=== PATIENT | female | born 1940 | race Caucasian/White ===

== ENCOUNTER 2016-09-21 07:38 | Inpatient (IN) | payer MEDICARE, OTHER ==
[~2016-09-21] VITALS: Ht 167.6 cm; Wt 77.1 kg
[2016-09-21] VITALS (10 sets, daily range): BP systolic 110–132; BP diastolic 36–88; PULSE 66–77; TEMP 97.6–98.3
[2016-09-21] MEDS ORDERED: CADUET 10 MG-201 TAB PO (08:09)
[2016-09-21] MEDS ORDERED: SYNTHROID0.075 MG/T PO (08:09)
[2016-09-21] MEDS ORDERED: COZAAR100 MG PO (08:09)
[2016-09-21 08:46] LABS: BASO # 0.1 (0.0-0.2); BASO % 0.6 % (0.0-2.0); EOS # 0.2 (0.0-0.7); EOS % 1.2 % (0-4.0); GRAN # 11.1 (1.4-6.5); GRAN % 79.9 % (42.2-75.2); LYMPH # 1.5 (1.2-3.4); LYMPH % 10.8 % (20.0-51.0); MEAN CELL VOLUME 84 fl (80.0-100.0); MEAN CORPUSCULAR HGB CONC 37 g/dl (33.0-37.0); MEAN PLATELET VOLUME 10.9 fl (7.4-10.4); MONO # 0.9 (0.1-0.6); MONO % 6.3 % (1.7-9.3); PLATELET COUNT 333 K/mm3 (130-400); RED BLOOD COUNT 3.52 M/mm3 (4.10-5.30); REDCELL DISTRIBUTION WIDTH-CV 17.9 % (11.5-14.5); WHITE BLOOD COUNT 13.8 K/mm3 (4.8-10.8)
[2016-09-21 08:49] LABS: HEMATOCRIT 29.4 % (37.0-47.0); HEMOGLOBIN 10.9 g/dl (12.5-16.0); MEAN CORPUSCULAR HEMOGLOBIN 31 pg (27.0-31.0)
[2016-09-21 08:50] LABS: INR 1.5 (0.8-3.0); PROTHROMBIN TIME 16.3 SECONDS (9.7-12.8)
[2016-09-21 08:53] LABS: PARTIAL THROMBOPLASTIN TIME 36.4 SECONDS (26.0-37.0)
[2016-09-21 08:57] LABS: LIPASE 81 U/L (23-300)
[2016-09-21 09:08] LABS: TROPONIN-I < 0.012 ng/mL (0.000-0.034)
[2016-09-21 09:36] LABS: ADJUSTED CALCIUM 9.7 mg/dL (8.4-10.2); ALBUMIN 2.8 gm/dL (3.5-5.0); BILIRUBIN,TOTAL 13.4 mg/dL (0.0-1.0); CALCIUM 8.7 mg/dL (8.4-10.2); CREATININE, serum 0.85 mg/dL (0.52-1.25); TOTAL PROTEIN 6.2 gm/dL (6.4-8.2)
[2016-09-21 09:43] LABS: POTASSIUM 2.7 mmol/L (3.4-5.0)
[2016-09-21 17:09] LABS: MAGNESIUM 2.1 mg/dL (1.6-2.3)
[2016-09-22 01:20] VITALS: BP 126/46; PULSE 75; TEMP 98.4
[2016-09-22 01:56] LABS: PH 6 (5-8); URINE APPEARANCE Hazy; URINE BACTERIA None Seen /hpf; URINE BILIRUBIN Positive (NEGATIVE); URINE BLOOD Negative (NEGATIVE); URINE COLOR Amber; URINE GLUCOSE Negative (NEGATIVE); URINE KETONE Negative (NEGATIVE); URINE RBC 0-2 /hpf; URINE UROBILINOGEN >=4.0 mg/dL (NEGATIVE)
[2016-09-22 05:35] VITALS: BP 112/53; PULSE 72; TEMP 97.8
[2016-09-22 08:01] LABS: BASO # 0.1 (0.0-0.2); BASO % 0.5 % (0.0-2.0); EOS # 0.1 (0.0-0.7); EOS % 0.8 % (0-4.0); GRAN # 9.8 (1.4-6.5); GRAN % 75.4 % (42.2-75.2); MEAN CELL VOLUME 84 fl (80.0-100.0); MEAN CORPUSCULAR HGB CONC 36 g/dl (33.0-37.0); MEAN PLATELET VOLUME 10.9 fl (7.4-10.4); MONO % 7.4 % (1.7-9.3); PLATELET COUNT 320 K/mm3 (130-400); REDCELL DISTRIBUTION WIDTH-CV 18.1 % (11.5-14.5)
[2016-09-22 08:07] LABS: ADJUSTED CALCIUM 8.8 mg/dL (8.4-10.2); ALBUMIN 2.5 gm/dL (3.5-5.0); BILIRUBIN,TOTAL 9.4 mg/dL (0.0-1.0); CALCIUM 7.6 mg/dL (8.4-10.2); CREATININE, serum 0.76 mg/dL (0.52-1.25); MAGNESIUM 2.1 mg/dL (1.6-2.3); POTASSIUM 3.7 mmol/L (3.4-5.0); TOTAL PROTEIN 5.6 gm/dL (6.4-8.2)
[2016-09-22 08:22] LABS: HEMOGLOBIN 9.8 g/dl (12.5-16.0); MEAN CORPUSCULAR HEMOGLOBIN 31 pg (27.0-31.0)
[2016-09-22 09:51] VITALS: BP 117/42; PULSE 62; TEMP 97
== END 2016-09-22 11:30 | disposition home or self-care (01) | DRG 445 ==
LOC: COL.ER 07:38 → SURG 10:07
PROVIDERS: Emergency Medicine; Internal Medicine Gastroenterology; Nurse Practitioner Family
PROC: 0F798DZ Dilation of Common Bile Duct with Intraluminal Device, Via Natural or Artificial Opening Endoscopic (ICD-10-PCS; 2016-09-21)
PROC: 0FB98ZX Excision of Common Bile Duct, Via Natural or Artificial Opening Endoscopic, Diagnostic (ICD-10-PCS; principal; 2016-09-21 14:30)
DX: K83.1 Obstruction of bile duct (principal); E87.1 Hypo-osmolality and hyponatremia; E87.6 Hypokalemia; I10 Essential (primary) hypertension; Z87.891 Personal history of nicotine dependence
CPT/HCPCS: 99222-AI; 99239; C1769; C2625; J1200; J2765; J3010; J7030; Q9967

== ENCOUNTER → 2017-02-12 | Outpatient (CLI) | payer MEDICARE, OTHER ==
[~2017-02-12] MED LIST: CADUET 10 MG-201 TAB PO; COZAAR100 MG PO; SYNTHROID0.075 MG/T PO
== END ==
LOC: COL.RAD 09:30
DX: C24.0 Malignant neoplasm of extrahepatic bile duct (principal); J84.10 Pulmonary fibrosis, unspecified; K86.89 Other specified diseases of pancreas; Z96.89 Presence of other specified functional implants
CPT/HCPCS: Q9967

== ENCOUNTER → 2017-02-21 | Outpatient (CLI) | payer MEDICARE, OTHER ==
[~2017-02-21] VITALS: Ht 167.6 cm; Wt 67.1 kg
[~2017-02-21] MED LIST changes: +LEVOXYL0.075 MG PO; +LIPITOR 10MG10 MG PO
[2017-02-21 09:00] VITALS: BP 112/53; PULSE 82
[2017-02-21 10:27] VITALS: BP 102/45; PULSE 88
[2017-02-21 10:28] VITALS: BP 106/49; PULSE 93
[2017-02-21 10:29] VITALS: BP 125/55; PULSE 93
== END ==
LOC: COL.VAS 08:44 → COL.CARD 10:45
DX: Z01.810 Encounter for preprocedural cardiovascular examination (principal); I10 Essential (primary) hypertension; R06.02 Shortness of breath; I08.0 Rheumatic disorders of both mitral and aortic valves; F17.200 Nicotine dependence, unspecified, uncomplicated
CPT/HCPCS: A9502; J2785